=== PATIENT | female | born 1955 | race Caucasian/White ===

== ENCOUNTER 2020-06-17 16:24 | Emergency (ER) | payer MEDICARE ==
[2020-06-17 17:59] LABS: BASOPHIL 0.5 % (0-2); EOSINOPHIL 0.6 % (0-7); HCT 31.3 % (37.0-47.0); HGB 10.9 g/dl (12.5-16.0); LYMPHOCYTE 13.7 % (15-48); MCHC 34.8 g/dL (32.0-36.0); MCV 88.9 fL (78.0-100.0); MONOCYTE 7.3 % (0-12); MPV 10.8 fL (6.0-9.5); NEUTROPHIL 77.6 % (41-80); NRBC 0.2; PLT 254 K/uL (150-400); RBC 3.52 M/uL (4.20-5.40); WBC 10.2 K/uL (4.0-10.5)
[2020-06-17 18:18] LABS: ALBUMIN 1.4 g/dL (3.4-5.0); BILIRUBIN - TOTAL 1.8 mg/dL (0.2-1.0); CREATININE 2.12 mg/dL (0.51-0.95); GLOBULIN (CALCULATION) 3.4 g/dL; POTASSIUM 3.6 mmol/L (3.5-5.1); TOTAL PROTEIN 4.8 g/dL (6.4-8.2)
[2020-06-17 19:34] LABS: BILIRUBIN 2+ mg/dL (NEGATIVE); BLOOD 2+ Ery/uL (NEGATIVE); CLARITY CLOUDY (CLEAR); COLOR YELLOW (YELLOW); GLUCOSE (U) NORMAL (NORMAL); LEUKOCYTES 2+ Leu/uL (NEGATIVE); NITRITE POSITIVE (NEGATIVE); PROTEIN 1+ mg/dL (NEGATIVE); SPECIFIC GRAVITY 1.025 (1.001-1.030); pH 5.5 (5.0-9.0)
[2020-06-17 19:43] LABS: BACTERIA 3+; URINARY WBC TNTC
[2020-06-17] MEDS ORDERED: ALDACTONE25 MG PO (19:47)
[2020-06-17] MEDS ORDERED: MACROBID100 MG PO (19:47)
[2020-06-17] MEDS ORDERED: MYCOLOG15 GM TOP (19:58)
== END 2020-06-17 20:29 | disposition home or self-care (01) ==
LOC: FER 16:24
PROVIDERS: Nurse Practitioner Family
DX: R06.02 Shortness of breath (principal); R60.0 Localized edema; N39.0 Urinary tract infection, site not specified; L97.819 Non-pressure chronic ulcer of other part of right lower leg with unspecified severity; R19.7 Diarrhea, unspecified; R53.83 Other fatigue; R53.81 Other malaise; I13.0 Hypertensive heart and chronic kidney disease with heart failure and stage 1 through stage 4 chronic kidney disease, or unspecified chronic kidney disease; E11.22 Type 2 diabetes mellitus with diabetic chronic kidney disease; N18.9 Chronic kidney disease, unspecified; I50.9 Heart failure, unspecified; Z85.048 Personal history of other malignant neoplasm of rectum, rectosigmoid junction, and anus; Z88.0 Allergy status to penicillin; Z88.1 Allergy status to other antibiotic agents; Z79.899 Other long term (current) drug therapy
CPT/HCPCS: 36415; 71046; 80053; 81001; 83880; 84484; 85025; 87076; 87088; 87186; 93005

== ENCOUNTER 2020-06-20 15:16 | Emergency (ER) | payer MEDICARE ==
[~2020-06-20 15:16] MED LIST: ALDACTONE25 MG PO; MACROBID100 MG PO; MYCOLOG15 GM TOP
[2020-06-20 17:39] LABS: BASOPHIL 0.1 % (0-2); EOSINOPHIL 0.2 % (0-7); HCT 30.2 % (37.0-47.0); HGB 10.2 g/dl (12.5-16.0); LYMPHOCYTE 7.5 % (15-48); MCH 31.2 pg (25.0-31.0); MCHC 33.8 g/dL (32.0-36.0); MCV 92.4 fL (78.0-100.0); MONOCYTE 4.7 % (0-12); MPV 11.4 fL (6.0-9.5); NRBC 0; PLT 205 K/uL (150-400); RBC 3.27 M/uL (4.20-5.40); WBC 12.8 K/uL (4.0-10.5)
[2020-06-20 17:49] LABS: ALBUMIN 1.4 g/dL (3.4-5.0); BILIRUBIN - TOTAL 0.9 mg/dL (0.2-1.0); BUN/CREAT RATIO (CALC) 9.7 RATIO; CREATININE 2.36 mg/dL (0.51-0.95); GLOBULIN (CALCULATION) 3.5 g/dL; POTASSIUM 3.6 mmol/L (3.5-5.1); TOTAL PROTEIN 4.9 g/dL (6.4-8.2)
--- NOTE | 2020-06-20 18:16 | NUR ---
REQUESTED CONSULTATION REGARDING PHYSICAL REHAB PLACMENT. PT. WAS IN ER ON FRIDAY WITH UTI. PT. WAS IN A REHAB IN [place] AND DISCHARGED APPROX 30 DAYS AGO. SHE USED UP HER DAYS WITH HER INSURANCE. THE FACILITY HAD APPLIED FOR [employer] IN [place], BUT SHE HAD NOT BEEN APPROVED. PT. MOVED TO [place] WITH SOME FRIENDS IN [place]. PER HER FRIEND HER PHYSCIAL STATUS HAS DECLINED OVER THE LAST FEW DAYS. ADVISED PT. AND HER FRIEND THAT AT THIS TIME THERE IS NO WAY TO SECURE A FACILITY PLACMENT THE BUSINESS OFFICES ARE CLOSED AND THERE IS NO WAY TO SECURE AN AUTHORIZATION. IN CASE PT. IS NOT ADMITTED GAVE FRIEND A LIST SNU FACILITIES.
[2020-06-20] MEDS ORDERED: LASIX20 MG PO (20:04)
== END 2020-06-20 20:25 | disposition home or self-care (01) ==
LOC: FER 15:16
PROVIDERS: Emergency Medicine
DX: I11.0 Hypertensive heart disease with heart failure (principal); I50.9 Heart failure, unspecified; D64.9 Anemia, unspecified; E11.9 Type 2 diabetes mellitus without complications; Z88.0 Allergy status to penicillin; Z88.1 Allergy status to other antibiotic agents
CPT/HCPCS: 36415; 71045; 80053; 83880; 84443; 84484; 85025